=== PATIENT | female | born 1975 | race Hispanic/Latino ===

== ENCOUNTER 2023-10-16 10:34 | Emergency (ER) | payer OTHER ==
[~2023-10-16] VITALS: Ht 162.6 cm; Wt 67.1 kg
[2023-10-16 11:22] LABS: HEMATOCRIT 35.3 % (36-48); MEAN CORPUSCULAR HEMOGLOBIN 28.2 pg (27.0-33.0); RED BLOOD CELL COUNT(AUTO) 4.01 MIL/uL (4.00-5.50)
[2023-10-16 11:32] LABS: CREATININE 0.5 mg/dL (0.5-1.5); POTASSIUM 3.9 mmol/L (3.5-5.1)
[2023-10-16] MEDS ORDERED: KETOROLAC 60 MG VIAL (30MG/ML) IM ONE (12:30)
[2023-10-16] MEDS ORDERED: KETO10 PO (13:37)
[2023-10-16 13:50] VITALS: BP 127/77; PULSE 70; RESP 16; O2SAT 99
== END 2023-10-16 14:02 | disposition home or self-care (01) ==
LOC: EDH 10:34
DX: M25.512 Pain in left shoulder (principal); G89.4 Chronic pain syndrome; J44.9 Chronic obstructive pulmonary disease, unspecified; M19.90 Unspecified osteoarthritis, unspecified site
CPT/HCPCS: 99284; 84484; 80048; 85027; 36415; 96372; 93005; J1885